=== PATIENT | female | born 1965 | race Caucasian/White ===

== ENCOUNTER 2017-10-08 15:30 | Inpatient (IN) | payer OTHER ==
[2017-10-08] MEDS ORDERED: SODIUM CHLORIDE 1,000 ML IV STA (15:37)
[2017-10-08] MEDS ORDERED: DUONEB NEB STA (15:38)
[2017-10-08] MEDS ORDERED: DUONEB NEB ONE (15:39)
[2017-10-08] MEDS ORDERED: RACEPINEPHRINE 2.25% NEB STA (15:42)
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
[2017-10-08 15:56] LABS: ABG BASE EXCESS 2 (-2.0-2.0); ABG HCO3 25.7 (22.0-26.0); ABG TCO2 27 (22.0-28.0)
[2017-10-08 16:02] LABS: BASOPHILS # (AUTO) 0.1 K/uL (0-0.2); BASOPHILS % (AUTO) 0.4 % (0.0-3.0); EOSINOPHILS % (AUTO) 0.1 % (0.0-7.0); HEMATOCRIT 37.6 % (37.0-47.0); HEMOGLOBIN 12.9 g/dl (12.0-16.0); IMMATURE GRANULOCYTE % (AUTO) 0.3 % (0.0-5.0); LYMPHOCYTES # (AUTO) 1.2 K/uL (0.60-3.4); LYMPHOCYTES % (AUTO) 7.7 (10.0-50.0); MEAN CORPUSCULAR HEMOGLOBIN 28.6 pg (27.0-31.0); MEAN CORPUSCULAR HGB CONC 34.3 (31.8-35.4); MEAN CORPUSCULAR VOLUME 83.4 fl (81.0-99.0); MONOCYTES # (AUTO) 0.7 K/uL (0.4-2.0); MONOCYTES % (AUTO) 4.7 (0-10); NEUTROPHILS # (AUTO) 13.4 K/ul (2.0-6.9); NEUTROPHILS % (AUTO) 86.8; PLATELET COUNT 284 10^3/uL (140-440); RED BLOOD COUNT 4.51 10^6/ul (4.20-5.40); WHITE BLOOD COUNT 15.46 K/ul (4.6-10.2)
--- NOTE | 2017-10-08 16:13 | DI ---
EXAM: Single frontal view of the chest HISTORY: Chest pain. COMPARISON: None FINDINGS: Cardiomediastinal silhouette is normal. There is no pneumothorax or pleural effusion. The re is no consolidation, nodule or mass. The osseous structures are unremarkable. IMPRESSION: No acute cardiopulmonary process.
[2017-10-08] MEDS ORDERED: ROBITUSSIN AC SYRUP PO STA (16:31)
[2017-10-08 17:02] LABS: ALBUMIN 3.5 g/dL (3.4-5.0); ALBUMIN/GLOBULIN RATIO 0.92; ANION GAP 13.9; BILIRUBIN,TOTAL 1.68 mg/dL (0.00-1.20); BUN/CREATININE RATIO 13.23; CALCIUM 9.7 mg/dL (8.2-10.2); CREATININE 0.68 mg/dL (0.60-1.30); POTASSIUM 3.9 mmol/L (3.5-5.10); TOTAL PROTEIN 7.3 g/dL (6.4-8.2); TROPONIN I 0.089 ng/ml (0.0000-0.4000)
[2017-10-08] MEDS ORDERED: SOLU-MEDROL 125 MG IVP STA (17:04)
[2017-10-08 17:05] LABS: CREATINE KINASE MB 5.6 ng/ml (0.0-3.6)
[2017-10-08] MEDS ORDERED: TYLENOL PO PRN (17:06)
[2017-10-08] MEDS: DUONEB NEB SCH ×2 (17:22→23:23)
[2017-10-08] MEDS ORDERED: ROBITUSSIN AC SYRUP PO PRN (19:15)
[2017-10-08] MEDS: MORPHINE 2 MG/ML SYRINGE IVP PRN (19:42)
[2017-10-08] MEDS: NICODERM 21 MG TD SCH (19:42)
[2017-10-08] MEDS: SODIUM CHLORIDE 1,000 ML IV SCH (19:42)
[2017-10-08 19:46] VITALS: BMI 20.3
[2017-10-08] MEDS: SOLU-MEDROL 125 MG IVP SCH (20:01)
--- NOTE | 2017-10-08 20:31 | CT ---
EXAM: CT of the soft tissue neck without contrast History: Dysphagia. Technique: Multiplanar CT images through the soft tissue neck were obtained without the administrati on of IV contrast Findings: Mild emphysema seen within the upper lungs. Patchy left lung infiltrates. The paranasal sinuses and mastoid air cells are clear in general. No acute osseous abnormalities. The intracranial contents demonstrate no grossly acute findings. Epiglottis is not thickened. No prevertebral soft tissue swelling. No peritonsillar inflammation. The parotid glands and submandibular glands are not inflamed. No parotid masses. Evaluation for lym ph nodes is limited due to lack of contrast administration but no bulky adenopathy is seen. No discr ete thyroid nodule identified by CT. Evaluation for abscess is limited due to lack of contrast admin istration but no obvious fluid collections identified. The airway remains patent. There is some harvey rowing of the airway at the level of the vocal cords where there is some debris. Impression: 1. Narrowing of the airway at the level of the vocal cords where there is some debris. Consider pos sible aspiration. Soft tissue mass is considered less likely. 2. Multifocal left lung pneumonia. 3. Mild emphysema within the upper lungs.
[2017-10-08 23:30] LABS: TROPONIN I 0.066 ng/ml (0.0000-0.4000)
[2017-10-09 05:04] LABS: BASOPHILS % (AUTO) 0.1 % (0.0-3.0); HEMATOCRIT 35.1 % (37.0-47.0); HEMOGLOBIN 11.4 g/dl (12.0-16.0); IMMATURE GRANULOCYTE % (AUTO) 0.4 % (0.0-5.0); LYMPHOCYTES # (AUTO) 0.8 K/uL (0.60-3.4); LYMPHOCYTES % (AUTO) 9.5 (10.0-50.0); MEAN CORPUSCULAR HEMOGLOBIN 27.9 pg (27.0-31.0); MEAN CORPUSCULAR HGB CONC 32.5 (31.8-35.4); MONOCYTES # (AUTO) 0.1 K/uL (0.4-2.0); MONOCYTES % (AUTO) 0.7 (0-10); NEUTROPHILS # (AUTO) 7.4 K/ul (2.0-6.9); NEUTROPHILS % (AUTO) 89.3; PLATELET COUNT 250 10^3/uL (140-440); RED BLOOD COUNT 4.08 10^6/ul (4.20-5.40); WHITE BLOOD COUNT 8.24 K/ul (4.6-10.2)
[2017-10-09] MEDS: DUONEB NEB SCH ×4 (05:15→22:20)
[2017-10-09] MEDS: MORPHINE 2 MG/ML SYRINGE IVP PRN ×3 (06:03→22:23)
[2017-10-09 07:21] LABS: ALBUMIN 3.2 g/dL (3.4-5.0); ALBUMIN/GLOBULIN RATIO 0.86; BILIRUBIN,TOTAL 0.84 mg/dL (0.00-1.20); BUN/CREATININE RATIO 15.49; CALCIUM 9.7 mg/dL (8.2-10.2); CREATININE 0.71 mg/dL (0.60-1.30); TOTAL PROTEIN 6.9 g/dL (6.4-8.2)
[2017-10-09 08:12] LABS: TROPONIN I 0.043 ng/ml (0.0000-0.4000)
[2017-10-09] MEDS: ROCEPHIN 1 GM in SODIUM CHLORIDE 50 ML IV SCH (08:53)
[2017-10-09] MEDS: NICODERM 21 MG TD SCH (08:54)
[2017-10-09] MEDS: SOLU-MEDROL 125 MG IVP SCH ×3 (08:54→20:03)
[2017-10-09] MEDS: SODIUM CHLORIDE 1,000 ML IV SCH (11:32)
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
--- NOTE | 2017-10-09 13:42 | CT ---
Exam: CT of the chest without intravenous contrast. Comparison: X-ray performed on 10/08/2017. Reason for exam: Shortness of air. FINDINGS: Image interpretation is limited by the lack of intravenous contrast administration. No pneumothorax or pleural effusion. There is mild basilar atelectasis. Patchy ground-glass opaciti es are seen within the left upper and lower lobes. There is a noncalcified 7.5-mm nodule in the left lower lobe on axial image number 32. The heart is not enlarged. The aorta is normal in course and caliber. Atherosclerotic disease is seen within the aorta. No suspicious appearing osteoblastic or osteolytic lesions. Partially calcified density adjacent to the spleen may represent a small calcified splenic artery ane urysm. Evaluation is limited without intravenous contrast. Impression: 1. Patchy airspace opacities in the left upper and lower lobes likely inflammatory or early pneumonia . Recommend follow-up evaluation to document resolution. 2. 7.5 mm nodule in the left lower lobe. Recommend short term interval follow-up and 3 months to doc ument stability.
[2017-10-10] MEDS: SODIUM CHLORIDE 1,000 ML IV SCH ×2 (01:51→15:49)
[2017-10-10 04:59] LABS: BASOPHILS % (AUTO) 0.1 % (0.0-3.0); HEMATOCRIT 31.2 % (37.0-47.0); HEMOGLOBIN 10.2 g/dl (12.0-16.0); IMMATURE GRANULOCYTE % (AUTO) 0.5 % (0.0-5.0); LYMPHOCYTES # (AUTO) 0.8 K/uL (0.60-3.4); LYMPHOCYTES % (AUTO) 7.2 (10.0-50.0); MEAN CORPUSCULAR HEMOGLOBIN 28.3 pg (27.0-31.0); MEAN CORPUSCULAR HGB CONC 32.7 (31.8-35.4); MEAN CORPUSCULAR VOLUME 86.7 fl (81.0-99.0); MONOCYTES # (AUTO) 0.4 K/uL (0.4-2.0); MONOCYTES % (AUTO) 3.8 (0-10); NEUTROPHILS # (AUTO) 9.9 K/ul (2.0-6.9); NEUTROPHILS % (AUTO) 88.4; PLATELET COUNT 249 10^3/uL (140-440); WHITE BLOOD COUNT 11.19 K/ul (4.6-10.2)
[2017-10-10] MEDS: DUONEB NEB SCH ×4 (05:16→23:10)
[2017-10-10 05:28] LABS: ALBUMIN 2.8 g/dL (3.4-5.0); ALBUMIN/GLOBULIN RATIO 0.85; ANION GAP 7.6; BILIRUBIN,TOTAL 0.26 mg/dL (0.00-1.20); BUN/CREATININE RATIO 20.68; CALCIUM 9.2 mg/dL (8.2-10.2); CREATININE 0.58 mg/dL (0.60-1.30); POTASSIUM 4.6 mmol/L (3.5-5.10); TOTAL PROTEIN 6.1 g/dL (6.4-8.2)
[2017-10-10] MEDS ORDERED: MILK OF MAGNESIA PO STA (08:32)
[2017-10-10] MEDS: MORPHINE 2 MG/ML SYRINGE IVP PRN ×2 (09:07→17:23)
[2017-10-10] MEDS: SOLU-MEDROL 125 MG IVP SCH ×3 (09:08→20:35)
[2017-10-10] MEDS: ROCEPHIN 1 GM in SODIUM CHLORIDE 50 ML IV SCH (09:17)
[2017-10-10] MEDS: MUCINEX PO SCH ×2 (09:18→20:35)
[2017-10-10] MEDS: NICODERM 21 MG TD SCH (09:18)
[2017-10-10] MEDS ORDERED: MOTRIN PO PRN (19:16)
[2017-10-11] MEDS: MORPHINE 2 MG/ML SYRINGE IVP PRN ×2 (04:55→21:43)
[2017-10-11] MEDS: SODIUM CHLORIDE 1,000 ML IV SCH (04:56)
[2017-10-11] MEDS: DUONEB NEB SCH ×4 (05:03→23:04)
[2017-10-11 05:18] LABS: HEMOGLOBIN 10.1 g/dl (12.0-16.0); IMMATURE GRANULOCYTE % (AUTO) 1.4 % (0.0-5.0); LYMPHOCYTES # (AUTO) 0.7 K/uL (0.60-3.4); LYMPHOCYTES % (AUTO) 8.2 (10.0-50.0); MEAN CORPUSCULAR HEMOGLOBIN 28.4 pg (27.0-31.0); MEAN CORPUSCULAR HGB CONC 32.6 (31.8-35.4); MEAN CORPUSCULAR VOLUME 87.1 fl (81.0-99.0); MONOCYTES # (AUTO) 0.2 K/uL (0.4-2.0); MONOCYTES % (AUTO) 2.5 (0-10); NEUTROPHILS # (AUTO) 7.8 K/ul (2.0-6.9); NEUTROPHILS % (AUTO) 87.9; PLATELET COUNT 290 10^3/uL (140-440); RED BLOOD COUNT 3.56 10^6/ul (4.20-5.40); WHITE BLOOD COUNT 8.87 K/ul (4.6-10.2)
[2017-10-11 05:42] LABS: ALBUMIN 3.1 g/dL (3.4-5.0); ANION GAP 11.6; BILIRUBIN,TOTAL 0.3 mg/dL (0.00-1.20); BUN/CREATININE RATIO 23.8; CALCIUM 9.2 mg/dL (8.2-10.2); CREATININE 0.63 mg/dL (0.60-1.30); POTASSIUM 4.6 mmol/L (3.5-5.10); TOTAL PROTEIN 6.2 g/dL (6.4-8.2)
[2017-10-11] MEDS: SOLU-MEDROL 125 MG IVP SCH ×3 (09:56→21:37)
[2017-10-11] MEDS: ROCEPHIN 1 GM in SODIUM CHLORIDE 50 ML IV SCH (09:56)
[2017-10-11] MEDS: MUCINEX PO SCH ×2 (09:57→21:38)
[2017-10-11] MEDS: NICODERM 21 MG TD SCH (09:57)
[2017-10-11] MEDS ORDERED: GI COCKTAIL PO STA (11:52)
[2017-10-11] MEDS ORDERED: DILAUDID 2 MG/ML SYRINGE IVP STA (11:54)
[2017-10-11] MEDS ORDERED: DILAUDID 2 MG/ML SYRINGE ONE (11:58)
--- NOTE | 2017-10-11 12:28 | CT ---
Exam: CT thorax without IV contrast. Clinical indication: Chest pain. TECHNIQUE: Axial unenhanced CT images of the thorax were obtained followed by coronal and sagittal r eformats. Findings: Within the posterior aspect of the left upper lobe and within the left lower lobe there are some scat tered ill-defined pulmonary parenchymal opacities, most consistent with infectious/inflammatory etiol ogy. Within the posterior aspect of the left lower lobe there is a densely partially calcified pulmonary g ranuloma, consistent with old healed granulomatous disease. The remainder the pulmonary parenchyma d emonstrates underlying centrilobular emphysema. The remainder of the pulmonary parenchyma is clear. There is no pleural abnormality. There are no enlarged axillary, hilar or mediastinal lymph nodes, by size criteria. There are coronary artery calcifications. The visualized portions of the upper abdomen are unremarkable. The visualized bony structures are unremarkable. Impression: 1. Patchy ill-defined opacities within the left upper and lower lobes, most consistent with infectio us/inflammatory etiology. 2. Underlying pulmonary emphysema. 3. Coronary artery calcifications. 4. Incidental evidence of old healed granulomatous disease.
[2017-10-11] MEDS: ATIVAN PO SCH ×2 (13:16→21:38)
[2017-10-11 13:17] LABS: TROPONIN I 0.04 ng/ml (0.0000-0.4000)
[2017-10-11 13:55] LABS: BILIRUBIN,URINE Negative (NEGATIVE); KETONES,URINE Negative (NEGATIVE); LEUKOCYTE ESTERASE ,URINE 2+ (NEGATIVE); NITRITE,URINE Negative (NEGATIVE); PH,URINE 6.5 (5-9); PROTEIN,URINE Negative (NEGATIVE); URINE, BLOOD Trace-intact (NEGATIVE)
[2017-10-11 14:01] LABS: ADD URINE MICROSCOPIC YES
[2017-10-11 14:05] LABS: BACTERIA,URINE TRACE (NOT PRESENT)
[2017-10-11 14:08] LABS: COCAIN SCREEN,URINE NEGATIVE (NEGATIVE)
[2017-10-11] MEDS ORDERED: LOVENOX SUBCUT SCH (20:30)
[2017-10-11] MEDS: FAMVIR PO SCH (22:22)
[2017-10-12 05:03] LABS: BASOPHILS % (AUTO) 0.2 % (0.0-3.0); HEMATOCRIT 30.8 % (37.0-47.0); HEMOGLOBIN 9.8 g/dl (12.0-16.0); IMMATURE GRANULOCYTE % (AUTO) 2.3 % (0.0-5.0); LYMPHOCYTES # (AUTO) 0.9 K/uL (0.60-3.4); LYMPHOCYTES % (AUTO) 16.8 (10.0-50.0); MEAN CORPUSCULAR HEMOGLOBIN 27.8 pg (27.0-31.0); MEAN CORPUSCULAR HGB CONC 31.8 (31.8-35.4); MEAN CORPUSCULAR VOLUME 87.3 fl (81.0-99.0); MONOCYTES # (AUTO) 0.1 K/uL (0.4-2.0); MONOCYTES % (AUTO) 2.7 (0-10); PLATELET COUNT 279 10^3/uL (140-440); RED BLOOD COUNT 3.53 10^6/ul (4.20-5.40); WHITE BLOOD COUNT 5.18 K/ul (4.6-10.2)
[2017-10-12] MEDS: DUONEB NEB SCH ×4 (05:03→23:40)
[2017-10-12 05:25] LABS: ALBUMIN 2.7 g/dL (3.4-5.0); ALBUMIN/GLOBULIN RATIO 1.04; ANION GAP 10.4; BILIRUBIN,TOTAL 0.32 mg/dL (0.00-1.20); BUN/CREATININE RATIO 25.42; CALCIUM 8.7 mg/dL (8.2-10.2); CREATININE 0.59 mg/dL (0.60-1.30); POTASSIUM 4.4 mmol/L (3.5-5.10); TOTAL PROTEIN 5.3 g/dL (6.4-8.2)
[2017-10-12] MEDS: CARAFATE PO SCH ×4 (06:03→20:58)
[2017-10-12] MEDS: PROTONIX PO SCH (06:03)
[2017-10-12] MEDS: FAMVIR PO SCH ×3 (06:03→20:59)
[2017-10-12] MEDS: ATIVAN PO SCH ×2 (10:00→20:59)
[2017-10-12] MEDS: MUCINEX PO SCH ×2 (10:01→20:59)
[2017-10-12] MEDS ORDERED: FAMVIR PO STA (10:02)
[2017-10-12] MEDS: ZITHROMAX PO SCH (10:02)
[2017-10-12] MEDS: NICODERM 21 MG TD SCH (10:04)
[2017-10-12] MEDS: ROCEPHIN 1 GM in SODIUM CHLORIDE 50 ML IV SCH (10:06)
[2017-10-12] MEDS: SOLU-MEDROL 125 MG IVP SCH ×3 (10:07→20:58)
[2017-10-12] MEDS: MORPHINE 2 MG/ML SYRINGE IVP PRN ×2 (11:24→20:58)
[2017-10-12] MEDS: SODIUM CHLORIDE 1,000 ML IV SCH (15:22)
[2017-10-12] MEDS: LOVENOX SUBCUT SCH (20:58)
[2017-10-13] MEDS: DUONEB NEB SCH ×4 (05:10→23:05)
[2017-10-13] MEDS: FAMVIR PO SCH ×3 (06:20→20:52)
[2017-10-13] MEDS: CARAFATE PO SCH ×4 (06:20→20:52)
[2017-10-13] MEDS: PROTONIX PO SCH (06:20)
[2017-10-13] MEDS: ZITHROMAX PO SCH (09:16)
[2017-10-13] MEDS: MUCINEX PO SCH ×2 (09:16→20:52)
[2017-10-13] MEDS: ATIVAN PO SCH ×2 (09:16→21:06)
[2017-10-13] MEDS: NICODERM 21 MG TD SCH (09:17)
[2017-10-13] MEDS: ROCEPHIN 1 GM in SODIUM CHLORIDE 50 ML IV SCH (09:20)
[2017-10-13] MEDS: SOLU-MEDROL 125 MG IVP SCH ×3 (09:33→20:52)
[2017-10-13] MEDS: MORPHINE 2 MG/ML SYRINGE IVP PRN ×2 (09:35→20:34)
[2017-10-13] MEDS ORDERED: GI COCKTAIL PO STA (17:17)
[2017-10-13] MEDS: LEXAPRO PO SCH (17:50)
[2017-10-13] MEDS ORDERED: CITRATE OF MAGNESIA PO STA (19:13)
[2017-10-13] MEDS: LOVENOX SUBCUT SCH (20:52)
[2017-10-14] MEDS: DUONEB NEB SCH ×4 (05:08→23:03)
[2017-10-14] MEDS: FAMVIR PO SCH ×3 (05:57→20:43)
[2017-10-14] MEDS: PROTONIX PO SCH (05:57)
[2017-10-14] MEDS: CARAFATE PO SCH ×4 (05:57→20:42)
--- NOTE | 2017-10-14 07:17 | PN ---
DATE OF SERVICE: 10/12/17 SUBJECTIVE: The patient is still coughing and congested, not able to get any phlegm. The patient has been complaining of burning and itching sensation in the upper right area which was examined in the presence of nurse Sanna. There was some blistery lesions and has a history of herpes simplex in the past. The patient being started on the Famciclovir for the herpes. REVIEW OF SYSTEMS: CONSTITUTIONAL: No fever, no chills. HEENT: Normal. ENDOCRINE: No weight gain, no weight loss. CVS: No angina symptoms. No CHF symptoms. No palpitations. No atypical chest pain for CAD. No shortness of breath. No PND, no orthopnea. RESPIRATORY: No cough, no hemoptysis. GI: No nausea, no vomiting. No abdominal pain. : No hematuria. No polyuria. MUSCULOSKELETAL:. No joint swelling. PSYCHIATRIC: Not anxious. No depression. No suicidal thoughts. No homicidal thoughts. SKIN: Intact. No rash. PHYSICAL EXAMINATION: V/S: Blood pressure 156/74, respiratory rate 15, heart rate 89, temperature 98.1 with saturation 97%. HEENT: Normocephalic, atraumatic. Mucosa dry. Pallor positive. No icterus. NECK: Supple. No JVD, no carotid bruit. No lymphadenopathy. LUNGS: Decreased and basilar crackles right more than the left. Clear to auscultation. No rales or rhonchi. HEART: S1, S2 normal. No S3. No murmur, gallop or regurgitation. ABDOMEN: Soft, nontender. Bowel sounds active. No rigidity. No rebound or guarding. No CVA tenderness. EXTREMITIES: No clubbing, cyanosis or pedal edema. MUSCULOSKELETAL: No joint swelling. NEUROLOGIC: Awake, alert, oriented times three. No focal deficit. LYMPHATIC: No lymph nodes palpable. SKIN: Intact. LABS: WBC 5.18, hgb 9.8, hct 30.8, plt count 279, sodium 137, potassium 4.4, chloride 101, bicarb 30, BUN 15, creatinine 0.59, glucose 190.AST 68, ALT 191. ASSESSMENT: 1. Inhalation, lung injury 2. Community acquired pneumonia multifocal 3. Herpes Simplex 4. History of anxiety disorder 5. Osteoarthritis 6. Lupus 7. Depression PLAN: 1. Continue Rocephin 1 gram daily 2. Lovenox for the DVT prophylaxis 3. Famciclovir 4. Phenergan with codeine 5. DUO NEBS 6. Lorazepam 7. Will add Azithromycin PO daily for three days. TIME SPENT: More than 30 minutes MTDD
[2017-10-14] MEDS: ROCEPHIN 1 GM in SODIUM CHLORIDE 50 ML IV SCH (09:35)
[2017-10-14] MEDS: ZESTRIL PO SCH (09:36)
[2017-10-14] MEDS: ATIVAN PO SCH ×2 (09:36→20:43)
[2017-10-14] MEDS: LEXAPRO PO SCH (09:36)
[2017-10-14] MEDS: ZITHROMAX PO SCH (09:36)
[2017-10-14] MEDS: MUCINEX PO SCH ×2 (09:37→20:43)
[2017-10-14] MEDS: NICODERM 21 MG TD SCH (09:44)
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
--- NOTE | 2017-10-14 10:41 | PN ---
DATE OF SERVICE: 10/09/17 SUBJECTIVE: The patient was admitted with respiratory distress and difficulty swallowing. CT of the neck did show some swelling in the soft tissue and multinodular pneumonia. REVIEW OF SYSTEMS: CONSTITUTIONAL: No fever, no chills. HEENT: Normal. Difficulty breathing and swallowing. ENDOCRINE: No weight gain, no weight loss. CVS: No angina symptoms. No CHF symptoms. No palpitations. No atypical chest pain for CAD. No shortness of breath. No PND, no orthopnea. RESPIRATORY: Cough and congestion. no hemoptysis. GI: No nausea, no vomiting. No abdominal pain. : No hematuria. No polyuria. MUSCULOSKELETAL:. No joint swelling. PSYCHIATRIC: Not anxious. No depression. No suicidal thoughts. No homicidal thoughts. SKIN: Intact. No rash. PHYSICAL EXAMINATION: V/S: Blood pressure 129/69, respiratory rate 20, heart rate 93, temperature 97.8 with saturation 97. HEENT: Normocephalic, atraumatic. Mucosa dry. Throat area redness is present. Swelling is present. NECK: Supple. No JVD, no carotid bruit. No lymphadenopathy. LUNGS: Decreased and basilar crackles with mild expiratory wheeze. No rales or rhonchi. HEART: S1, S2 normal. No S3. No murmur, gallop or regurgitation. ABDOMEN: Soft, nontender. Bowel sounds active. No rigidity. No rebound or guarding. No CVA tenderness. EXTREMITIES: No clubbing, cyanosis or pedal edema. MUSCULOSKELETAL: No joint swelling. NEUROLOGIC: Awake, alert, oriented times three. No focal deficit. LYMPHATIC: No lymph nodes palpable. SKIN: Intact. LABS: WBC 8.24, hgb 11.4, hct 35.1, plt count 250, sodium 138, potassium 4.0, chloride 103, Bicarb 26, BUN 11, creatinine 0.71, glucose 153, AST 64, Alkaline phosphatase 107. ASSESSMENT: 1. Chemical pneumonitis 2. Multinodular pneumonia per CT neck 3. Difficulty swallowing 4. Shortness of breath PLAN: 1. Continue the Rocephin 2. DUO NEBS 3. IV fluids 4. Breathing treatments 5. Solu-Medrol 6. Daily I&O's TIME SPENT: More than 35 minutes MTDD
[2017-10-14] MEDS: SOLU-MEDROL 125 MG IVP SCH ×3 (10:42→20:42)
[2017-10-14] MEDS: MORPHINE 2 MG/ML SYRINGE IVP PRN (10:49)
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
[2017-10-14 15:47] LABS: BASOPHILS % (AUTO) 0.2 % (0.0-3.0); HEMATOCRIT 38.1 % (37.0-47.0); HEMOGLOBIN 12.5 g/dl (12.0-16.0); IMMATURE GRANULOCYTE % (AUTO) 3.7 % (0.0-5.0); LYMPHOCYTES # (AUTO) 1.1 K/uL (0.60-3.4); LYMPHOCYTES % (AUTO) 9.2 (10.0-50.0); MEAN CORPUSCULAR HEMOGLOBIN 28.4 pg (27.0-31.0); MEAN CORPUSCULAR HGB CONC 32.8 (31.8-35.4); MEAN CORPUSCULAR VOLUME 86.6 fl (81.0-99.0); MONOCYTES # (AUTO) 0.5 K/uL (0.4-2.0); MONOCYTES % (AUTO) 4.2 (0-10); NEUTROPHILS % (AUTO) 82.7; PLATELET COUNT 431 10^3/uL (140-440); WHITE BLOOD COUNT 12.05 K/ul (4.6-10.2)
[2017-10-14 15:57] LABS: ALBUMIN 3.3 g/dL (3.4-5.0); ALBUMIN/GLOBULIN RATIO 0.97; ANION GAP 12.4; BILIRUBIN,TOTAL 0.36 mg/dL (0.00-1.20); BUN/CREATININE RATIO 25.64; CALCIUM 8.9 mg/dL (8.2-10.2); CREATININE 0.78 mg/dL (0.60-1.30); POTASSIUM 4.4 mmol/L (3.5-5.10); TOTAL PROTEIN 6.7 g/dL (6.4-8.2)
[2017-10-14] MEDS: LOVENOX SUBCUT SCH (20:42)
[2017-10-15] MEDS: DUONEB NEB SCH ×2 (05:10→11:27)
[2017-10-15] MEDS: FAMVIR PO SCH ×2 (06:09→14:18)
[2017-10-15] MEDS: CARAFATE PO SCH ×2 (06:09→14:23)
[2017-10-15] MEDS: PROTONIX PO SCH (06:10)
[2017-10-15] MEDS: NICODERM 21 MG TD SCH (08:44)
[2017-10-15] MEDS: LEXAPRO PO SCH (09:43)
[2017-10-15] MEDS: MUCINEX PO SCH (09:43)
[2017-10-15] MEDS: ZESTRIL PO SCH (09:44)
[2017-10-15] MEDS: MORPHINE 2 MG/ML SYRINGE IVP PRN (09:44)
[2017-10-15] MEDS: ATIVAN PO SCH (09:44)
[2017-10-15] MEDS: ROCEPHIN 1 GM in SODIUM CHLORIDE 50 ML IV SCH (09:47)
[2017-10-15] MEDS: SOLU-MEDROL 125 MG IVP SCH (09:50)
[2017-10-15 10:53] VITALS: BP 172/84; TEMP 98
--- NOTE | 2017-10-15 11:01 | US ---
EXAM: ULTRASOUND ABDOMEN LIMITED HISTORY: Elevated liver enzyme FINDINGS: Ultrasound abdomen, limited. Lange-scale ultrasound and color Doppler was performed. Live r size was normal at 10.3 cm. The liver parenchyma demonstrated normal sonographic appearance without evidence of intrahepatic biliary dilatation or focal lesion. Patent and hepatopedal main portal vein . The gallbladder has been removed. Common bile duct diameter normal at 0.57 cm. Visualized pancreas was within normal limits. No ascites. Survey of the right kidney had no evidence of hydronephrosis. IMPRESSION: 1. Grossly unremarkable liver. 2. Post cholecystectomy state with no common bile duct dilatation.
[2017-10-15] MEDS ORDERED: FAMVIR PO STA (13:58)
[2017-10-15 16:50] LABS: COCAIN SCREEN,URINE NEGATIVE (NEGATIVE)
--- NOTE | 2017-11-05 11:34 | PN ---
DATE OF SERVICE: 10/13/17 SUBJECTIVE: The patient was admitted with inhalation injury and community acquired pneumonia. She is still coughing with congestion and shortness of breath with minimal exertion. The patient started having some jitteriness and shakiness. She complains that she has been depressed and crying. Otherwise, no fever, chills, PND or orthopnea. REVIEW OF SYSTEMS: CONSTITUTIONAL: No fever, no chills. HEENT: Normal. ENDOCRINE: No weight gain, no weight loss. CVS: No angina symptoms. No CHF symptoms. No palpitations. No atypical chest pain for CAD. No shortness of breath. No PND, no orthopnea. RESPIRATORY: Cough, congestion and shortness of breath with minimal exertion, no hemoptysis. GI: No nausea, no vomiting. No abdominal pain. : No hematuria. No polyuria. MUSCULOSKELETAL:. No joint swelling. PSYCHIATRIC: Not anxious. Depression with crying. No suicidal thoughts. No homicidal thoughts. SKIN: Intact. No rash. PHYSICAL EXAMINATION: V/S: Blood pressure 156/72, respiratory rate 20, heart rate 90, temperature 97.6 , saturation 98. HEENT: Normocephalic, atraumatic. Mucosa dry. Pallor positive. No icterus. NECK: Supple. No JVD, no carotid bruit. No lymphadenopathy. LUNGS: Decreased basilar crackles. Expiratory wheeze. No rales or rhonchi. HEART: S1, S2 normal. No S3. No murmur, gallop or regurgitation. ABDOMEN: Soft, nontender. Bowel sounds active. No rigidity. No rebound or guarding. No CVA tenderness. EXTREMITIES: No clubbing, cyanosis or pedal edema. MUSCULOSKELETAL: No joint swelling. NEUROLOGIC: Awake, alert, oriented times three. No focal deficit. LYMPHATIC: No lymph nodes palpable. SKIN: Intact. LABS: From 10/12/2017, white count 5.18, hemoglobin 9.8, hematocrit 30.8, platelet count 214.6, sodium 137, potassium 4.4, chloride 101, bicarb 30. BUN 15 , creatinine 0.59, glucose 119. Elevated AST 68, ALT 191. ASSESSMENT: 1. INHALATION INJURY 2. COMMUNITY ACQUIRED PNEUMONIA 3. DEPRESSION 4. ANXIETY 5. ELEVATED LIVER ENZYMES 6. HERPES SIMPLEX 7. NICOTINE USE PLAN: 1. Continue the Rocephin, Zithromycin, Famvir, Solu-Medrol and DuoNebs. 2. Will start the patient on Lexapro 20 mg p.o. daily. TIME SPENT: More than 35 minutes MTDD
--- NOTE | 2017-11-05 11:44 | PN ---
DATE OF SERVICE: 10/14/17 SUBJECTIVE: The patient is still coughing with congestion. She has some shortness of breath. Otherwise, no fever, chills, PND or orthopnea. REVIEW OF SYSTEMS: CONSTITUTIONAL: No fever, no chills. HEENT: Normal. ENDOCRINE: No weight gain, no weight loss. CVS: No angina symptoms. No CHF symptoms. No palpitations. No atypical chest pain for CAD. No shortness of breath. No PND, no orthopnea. RESPIRATORY: Cough, congestion and shortness of breath. No hemoptysis. GI: No nausea, no vomiting. No abdominal pain. : No hematuria. No polyuria. MUSCULOSKELETAL:. No joint swelling. PSYCHIATRIC: Not anxious. No depression. No suicidal thoughts. No homicidal thoughts. SKIN: Intact. No rash. PHYSICAL EXAMINATION: V/S: Blood pressure 182/98, heart rate 101. respiratory rate 20, temperature 97.4 and saturation 96. HEENT: Normocephalic, atraumatic. Mucosa dry. NECK: Supple. No JVD, no carotid bruit. No lymphadenopathy. LUNGS: Decreased basilar crackles. Expiratory wheeze. No rales or rhonchi. HEART: S1, S2 normal. No S3. No murmur, gallop or regurgitation. ABDOMEN: Soft, nontender. Bowel sounds active. No rigidity. No rebound or guarding. No CVA tenderness. EXTREMITIES: No clubbing, cyanosis or pedal edema. MUSCULOSKELETAL: No joint swelling. NEUROLOGIC: Awake, alert, oriented times three. No focal deficit. PSYCHOLOGICAL: Mood is a little bit better with no crying episodes. LYMPHATIC: No lymph nodes palpable. SKIN: Intact. LABS: Sodium 135, potassium 4.4, chloride 97, bicarb 30, BUN 20, creatinine 0.78, glucose 124, AST 105, ALT 273. White count 12.05, hemoglobin 12.5, hematocrit 38.1, platelet count 431. ASSESSMENT: 1. INHALATION INJURY 2. COMMUNITY ACQUIRED PNEUMONIA 3. ELEVATED LIVER ENZYMES 4. DEPRESSION 5. ANXIETY 6. HERPES SIMPLEX INFECTION PLAN: 1. Continue Rocephin, Zithromycin. 2. CT scan of the chest without contrast. 3. IV fluids. 4. Breathing treatments 5. Solu-Medrol. 6. Nicotine patch. TIME SPENT: More than 35 minutes MTDD
--- NOTE | 2017-11-05 12:15 | DS ---
DATE OF SERVICE: 10/15/17 FINAL DIAGNOSIS: 1. INHALATION LUNG INJURY 2. COMMUNITY ACQUIRED PNEUMONIA, BILATERAL 3. NICOTINE USE 4. DEPRESSION 5. ANXIETY 6. OSTEOARTHRITIS 7. LUPUS 8. HERPES SIMPLEX 9. FIBROMYALGIA 10. GERD 11. HYPERTENSION PLAN: 1. Discharge the patient home. 2. Follow up in the [facility]. 3. Medications: Protonix 40 mg p.o. daily Zestril 40 mg p.o. daily Lexapro 20 mg daily Keflex 500 mg p.o. twice daily for five days Prednisone 10 mg twice a day for five days Famvir 500 mg, take one tablet p.o. at bedtime 4. Diet: Cardiac and healthy. 5. Activity: As much as tolerated. 6. Advised clearly to quit smoking. Offered help, offered the nicotine patch, but the patient refused to do this at this time. DISEASE SPECIFIC EDUCATION: About the pneumonia, exposure to the fumes, pneumonia vaccination were discussed. HOSPITAL COURSE: Amanda Rios who is 52 year old female came to the emergency room after the patient was burning some garbage. She started having shortness of breath, swelling in the throat so she came to the emergency room and was seen by Dr. Traylor in the emergency room. ABG showed the pH 7.450, PCO2 37.0, PO2 66. White count was 15,000. Chemistry was sodium 132 and CKMB was slightly elevated. At that time, the patient was admitted to the hospital and I came and saw her. We did CT of the soft tissue of the neck, which did show soft tissue swelling in the throat and which did show multifocal pneumonia for which a CT of the chest was done which was consistent with the multifocal pneumonia. She was continued with the steroids, antibiotics and the breathing treatments. CT of the chest did show 7.5 mm nodule in the left lower lobe. With the given breathing treatments, the patient gradually was recuperating. The hospital course was lengthy and she was taking time as the patient gets easily anxious and short of breath. After two days, she complained that she had been having some painful rash and blisters around her vagina. Examined in the presence of the nurse, Sanna. There were blistery lesions significant for the herpes simplex. The patient was started on the Famvir. The patient then started crying and had depression complaining of depression, but not suicidal. Lexapro was started. [place] was given for the anxiety. The patient was up and about walking. She still had shortness of breath and coughing. Repeat CT scan done on 10/11/2017 showed patchy ill defined opacities in the left upper and lower lobes. Most consistent with the infection or inflammatory etiology. Coronary calcifications were also seen. Meanwhile ALT's were elevating, but we thought this may be a reaction from the Famvir, but we did go ahead and do the ultrasound which did not show any acute findings of the liver or abdomen. Repeat chest scan done on the 10/14/17 showed improved aeration in the left lung with subtile ground-glass opacities and follow up is suggested. As the patient is up and awake and did not have any shortness of breath. She still had a cough, but no shortness of breath. Clinically stable at that time, so she is being discharged to home. TIME SPENT: MORE THAN 55 MINUTES MTDD
== END 2017-10-15 15:00 | disposition home or self-care (01) | DRG 917 ==
LOC: ED 15:30 → MEDSURG B 17:15
PROVIDERS: ADMIT Emergency Medicine; ATTEND Emergency Medicine
DX: T59.811A Toxic effect of smoke, accidental (unintentional), initial encounter (principal); J18.9 Pneumonia, unspecified organism; J70.5 Respiratory conditions due to smoke inhalation; R06.02 Shortness of breath; R07.9 Chest pain, unspecified; R13.10 Dysphagia, unspecified; A60.00 Herpesviral infection of urogenital system, unspecified; R74.8 Abnormal levels of other serum enzymes; I10 Essential (primary) hypertension; R91.1 Solitary pulmonary nodule; F41.8 Other specified anxiety disorders; M19.90 Unspecified osteoarthritis, unspecified site; M32.9 Systemic lupus erythematosus, unspecified; M79.7 Fibromyalgia; K21.9 Gastro-esophageal reflux disease without esophagitis; K59.00 Constipation, unspecified; F17.200 Nicotine dependence, unspecified, uncomplicated; Y93.H9 Activity, other involving exterior property and land maintenance, building and construction; X08.8XXA Exposure to other specified smoke, fire and flames, initial encounter
CPT/HCPCS: 36415; 80053; 80306; 81001; 82150; 82550; 82553; 82803; 83605; 83690; 83880; 84145; 84484; 85025; 87040; 87070; 87086; 93005; 93010; 94640; 96361; 96374; 99284

== ENCOUNTER 2018-01-26 19:20 | Inpatient (IN) | payer OTHER ==
[2018-01-26] MEDS ORDERED: NORFLEX IM STA (19:45)
[2018-01-26] MEDS ORDERED: TORADOL IM STA (19:45)
[2018-01-26] MEDS ORDERED: ZOFRAN ODT PO STA (19:45)
--- NOTE | 2018-01-26 19:49 | ED.PDOC ---
General ED Provider: Dr. FIDEL RAYMUNDO Chief Complaint: Headache Stated Complaint: Patient is a 52 year old female who comes to the ER brought by her daughter with headaches for the past two days. Has not had any relief with Tylenol. Also complains of head itching like it is on fire or has bugs. Daughter states she has been complaining of this for a while and has been treated with nix for possible parasite infection. Daughter states that she drinks alot all the time but does not thinks she uses drugs. Time Seen by Physician: 19:36 Mode of Arrival: Walk-In Information Source: Patient Nursing and Triage Documentation Reviewed and Agree: Yes Reviewed sepsis parameters & appropriate labs ordered?: No System Inflammatory Response Syndrome: Not Applicable Sepsis Protocol: For patient's 13 years and over: Temp is 96.8 and below OR 101 and greater Pulse >90 BPM Resp >20/minute Acutely Altered Mental Status Are patient's symptoms suggestive of a new infection, such as: -Pneumonia -Skin, Soft Tissue -Endocarditis -UTI -Bone, Joint Infection -Implantable Device -Acute Abdominal Infection -Wound Infection -Meningitis -Blood Stream Catheter Infection -Unknown System Inflammatory Response Syndrome: Not Applicable Review of Systems - Review Of Systems Constitutional: Reports: No symptoms Eyes: Reports: No symptoms Ears, Nose, Mouth, Throat: Reports: No symptoms Respiratory: Reports: No symptoms Cardiac: Reports: No symptoms GI: Reports: No symptoms : Reports: No symptoms Musculoskeletal: Reports: No symptoms Skin: Reports: Rash Neurological: Reports: Anxiety Endocrine: Reports: No symptoms Hematologic/Lymphatic: Reports: No symptoms All Other Systems: Reviewed and Negative Past Medical History - Past Medical History Previously Healthy: Yes Endocrine: Reports: None Cardiovascular: Reports: None Respiratory: Reports: None Hematological: Reports: None Gastrointestinal: Reports: None Genitourinary: Reports: None Neuro/Psych: Reports: Migraine Musculoskeletal: Reports: Unknown Cancer: Reports: None Last Menstrual Period: N/A Other Pertinent Past Medical History: jenise lee - Surgical History General Surgical History: Reports: Cholecystectomy - Family History Family History: Reports: None - Social History Smoking Status: Current every day smoker Hx Substance Use: No Alcohol Screening: None - Immunizations Tetanus Shot up to Date: No Physical Exam - Physical Exam Appearance: Ill-appearing, Thin Ill-appearing: Moderate Eyes: LISA, EOMI, Conjunctiva clear ENT: Nose normal, Oropharynx normal Neck: Supple Respiratory: Airway patent, Breath sounds clear, Breath sounds equal, Respirations nonlabored Cardiovascular: RRR, Pulses normal, No rub, No murmur, Tachycardia GI/: Soft, Nontender, No masses, Bowel sounds normal, No Organomegaly Musculoskeletal: Normal strength, ROM intact, No edema, No calf tenderness Skin: Warm, Dry Neurological: Sensation intact, Motor intact, Reflexes intact, Cranial nerves intact, Alert, Oriented Psychiatric: Anxious, Depressed Physician Notification - Case Discussed Physician Notified: DR. Bates Time of Notification: 22:43 (Ok to Admit for Alcohol withdrawal.) Critical Care Note - Critical Care Note Total Time (mins): 30 Course - Course Hematology/Chemistry: 01/26/18 21:21 01/26/18 21:21 Orders, Labs, Meds: Lab Review 01/26/18 01/26/18 01/26/18 21:21 21:21 21:21 WBC 6.96 RBC 4.73 Hgb 12.3 Hct 39.3 MCV 83.1 MCH 26.0 L MCHC 31.3 L RDW Coeff of Patrick 15.6 H Plt Count 272 Immature Gran % (Auto) 0.3 Neut % (Auto) 48.5 Lymph % (Auto) 40.4 Charlton % (Auto) 6.6 Eos % (Auto) 3.2 Baso % (Auto) 1.0 Immature Gran # (Auto) 0.0 Neut # (Auto) 3.4 Lymph # (Auto) 2.8 Charlton # (Auto) 0.5 Eos # (Auto) 0.2 Baso # (Auto) 0.1 Sodium 141 Potassium 3.0 L Chloride 100 Carbon Dioxide 26 Anion Gap 18.0 BUN 9 Creatinine 0.70 Estimated GFR (MDRD) 88.00 BUN/Creatinine Ratio 12.85 Glucose 113 H Calcium 9.8 Total Bilirubin 0.6 AST 28 ALT 24 Alkaline Phosphatase 67 Total Protein 7.1 Albumin 4.2 Globulin 2.9 Albumin/Globulin Ratio 1.45 TSH 0.209 L Free T4 Plasma/Serum Alcohol < 10.0 01/26/18 21:21 WBC RBC Hgb Hct MCV MCH MCHC RDW Coeff of Patrick Plt Count Immature Gran % (Auto) Neut % (Auto) Lymph % (Auto) Charlton % (Auto) Eos % (Auto) Baso % (Auto) Immature Gran # (Auto) Neut # (Auto) Lymph # (Auto) Charlton # (Auto) Eos # (Auto) Baso # (Auto) Sodium Potassium Chloride Carbon Dioxide Anion Gap BUN Creatinine Estimated GFR (MDRD) BUN/Creatinine Ratio Glucose Calcium Total Bilirubin AST ALT Alkaline Phosphatase Total Protein Albumin Globulin Albumin/Globulin Ratio TSH Free T4 0.92 Plasma/Serum Alcohol Orders Category Date Time Status OXYGEN Routine CARDIO 01/26/18 22:50 Ordered ACTIVITY .Early Mobilization for VTE Prevention CARE 01/26/18 22:50 Active INTAKE & OUTPUT Q8HR CARE 01/26/18 22:50 Active VITAL SIGNS Q4HR CARE 01/26/18 22:50 Active REGULAR DIET DIETARY 01/26/18 Breakfast Ordered ED IV/MEDIPORT/POWERPORT .ONCE EMERGENCY 01/26/18 21:55 Active BASIC METABOLIC PANEL DAILY@0600 LAB 01/27/18 06:00 Ordered BASIC METABOLIC PANEL DAILY@0600 LAB 01/28/18 06:00 Ordered BLOOD ALCOHOL Stat LAB 01/26/18 21:21 Completed CBC W/ AUTO DIFF DAILY@0600 LAB 01/27/18 06:00 Ordered CBC W/ AUTO DIFF DAILY@0600 LAB 01/28/18 06:00 Ordered CBC W/ AUTO DIFF Stat LAB 01/26/18 21:21 Completed COMPREHENSIVE METABOLIC PANEL Stat LAB 01/26/18 21:21 Completed DRUG SCREEN, URINE, RAPID Stat LAB 01/26/18 21:44 Ordered FREE T4 (FREE THYROXINE) Stat LAB 01/26/18 21:21 Completed HIV 1/O/2 ANTIBODIES Stat LAB 01/26/18 21:21 Received TSH [THYROID STIMULATING HORMONE] Stat LAB 01/26/18 21:21 Completed 0.9 % Sodium Chloride [Saline Flush] MEDS 01/26/18 21:55 Ordered 1 syr IVF PRN PRN Acetaminophen [Tylenol] MEDS 01/26/18 22:50 Ordered 650 mg PO Q4H PRN Chlordiazepoxide HCl [Librium] MEDS 01/26/18 23:00 Ordered 25 mg PO TID Enoxaparin Sodium [Lovenox] MEDS 01/27/18 09:00 Ordered 40 mg SUBCUT DAILY Hydroxyzine HCl [Atarax] MEDS 01/26/18 21:40 Discontinued 50 mg .ROUTE .STK-MED ONE Hydroxyzine HCl [Atarax] MEDS 01/26/18 21:36 Discontinued 50 mg PO ONCE STA Ketorolac Tromethamine [Toradol] MEDS 01/26/18 19:45 Discontinued 60 mg IM ONCE STA Lorazepam [Ativan] MEDS 01/26/18 21:45 Discontinued 1 mg PO ONCE STA Lorazepam [Ativan] MEDS 01/26/18 22:50 Ordered 1 mg PO Q2H PRN Ondansetron HCl/Pf [Zofran 4 mg/2 ml] MEDS 01/26/18 22:50 Ordered 4 mg IVP Q6H PRN Ondansetron [Zofran Odt] MEDS 01/26/18 19:45 Discontinued 4 mg PO ONCE STA Orphenadrine Citrate [Norflex] MEDS 01/26/18 19:45 Discontinued 60 mg IM ONCE STA Potassium Chloride in 0.9%NaCl [Sodium Chloride 0.9%- MEDS 01/26/18 23:00 Ordered KCl 20 Meq] 1,000 ml Vitamin B-1 Inj [Thiamine] 100 mg IV 125 mls/hr Sodium Chloride 0.9% [Sodium Chloride] 1,000 ml MEDS 01/26/18 21:57 Discontinued IV BOLUS Vitamin B-1 Inj [Thiamine] MEDS 01/27/18 09:00 Ordered 100 mg IVP DAILY RESUSCITATION STATUS Routine OTHERS 01/26/18 22:[address] HEAD W/O CONTRAST Stat RADS 01/26/18 19:45 Completed Medications Generic Name Dose Route Start Last Admin Trade Name Freq PRN Reason Stop Dose Admin Acetaminophen 650 mg 01/26/18 22:50 Tylenol PO Q4H PRN headache Chlordiazepoxide HCl 25 mg 01/26/18 23:00 01/27/18 00:35 Librium PO Not Given TID [facility] Enoxaparin Sodium 40 mg 01/27/18 09:00 Lovenox SUBCUT DAILY [facility] Thiamine HCl 100 mg/ Potassium 1,001 mls @ 125 mls/hr 01/26/18 23:00 00:28 Chloride/Sodium Chloride IV 125 mls/hr .Q8H1M [facility] Administration Lorazepam 1 mg 01/26/18 22:50 Ativan PO Q2H PRN Alcohol Withdrawal Ondansetron HCl 4 mg 01/26/18 22:50 Zofran 4 Mg/2 Ml IVP Q6H PRN Nausea / Vomiting Sodium Chloride 1 syr 01/26/18 21:55 Saline Flush IVF PRN PRN To flush IV Thiamine HCl 100 mg 01/27/18 09:00 Thiamine IVP DAILY JERAMY Discontinued Medications Generic Name Dose Route Start Last Admin Trade Name Darron PRN Reason Stop Dose Admin Hydroxyzine HCl 50 mg 01/26/18 21:36 01/26/18 21:43 Atarax PO 01/26/18 21:37 Not Given ONCE STA Sodium Chloride 1,000 mls @ 1,000 mls/hr 01/26/18 21:57 01/26/18 22:29 Sodium Chloride IV 01/26/18 22:56 1,000 mls/hr BOLUS STA Administration Ketorolac Tromethamine 60 mg 01/26/18 19:45 01/26/18 19:55 Toradol IM 01/26/18 19:46 60 mg ONCE STA Administration Lorazepam 1 mg 01/26/18 21:45 01/26/18 21:58 Ativan PO 01/26/18 21:46 1 mg ONCE STA Administration Ondansetron HCl 4 mg 01/26/18 19:45 01/26/18 19:55 Zofran Odt PO 01/26/18 19:46 4 mg ONCE STA Administration Orphenadrine Citrate 60 mg 01/26/18 19:45 01/26/18 19:55 Norflex IM 01/26/18 19:46 60 mg ONCE STA Administration Vital Signs: Temp Pulse Resp BP Pulse Ox 01/26/18 19:20 98.6 F 105 H 20 152/82 H 97 Departure - Departure Time of Disposition: 21:40 Disposition: ADMITTED INPATIENT Discharge Problem: Anxiety, Seborrheic dermatitis of scalp Condition: Fair Pt referred to PMD for follow-up: Yes IPMP verified?: No Allergies/Adverse Reactions: Allergies No Known Allergies Allergy (Verified 01/26/18 19:23) Home Medications: Ambulatory Orders Hydroxyzine HCl [Atarax] 25 mg PO TID PRN #25 tablet 01/26/18 Disposition Discussed With: Patient, Family
--- NOTE | 2018-01-26 20:26 | CT ---
EXAM: CT head without contrast 01/26/2018. Sagittal and coronal reformatted images obtained HISTORY: Headache COMPARISON: 07/14/2015 FINDINGS: There is no evidence of intracranial hemorrhage. The midline is maintained. There is no h ydrocephalus. No cerebellar tonsillar ectopia. Evaluation of the calvarium shows no fracture. Th e mastoid air cells are normally pneumatized. IMPRESSION: No acute intracranial abnormality.
[2018-01-26] MEDS ORDERED: VISTARIL INJ IM STA (21:12)
[2018-01-26] MEDS ORDERED: ATARAX PO STA (21:36)
[2018-01-26] MEDS ORDERED: ATARAX ONE (21:40)
[2018-01-26] MEDS ORDERED: ATIVAN PO STA (21:45)
[2018-01-26] MEDS ORDERED: SODIUM CHLORIDE 1,000 ML IV STA (21:57)
[2018-01-26] MEDS ORDERED: ZOFRAN 4 MG/2 ML IVP PRN (22:50)
[2018-01-26] MEDS ORDERED: TYLENOL PO PRN (22:50)
[2018-01-27] MEDS ORDERED: THIAMINE ONE ×3 (00:23→17:05)
[2018-01-27 00:27] VITALS: BMI 20.8
[2018-01-27] MEDS: THIAMINE IV SCH ×4 (00:28→17:17)
[2018-01-27] MEDS: SODIUM CHLORIDE 0.9% IV SCH ×2 (00:28→10:23)
[2018-01-27] MEDS: KCL 20 MEQ IV SCH ×4 (00:28→17:17)
[2018-01-27] MEDS: LIBRIUM PO SCH ×4 (00:35→20:37)
[2018-01-27] MEDS ORDERED: INFUVITE ADULT IV ONE ×2 (08:50→17:05)
[2018-01-27] MEDS: SODIUM CHLORIDE IV SCH ×2 (08:59→17:17)
[2018-01-27] MEDS: INFUVITE ADULT IV SCH ×2 (08:59→17:17)
[2018-01-27] MEDS ORDERED: THIAMINE IVP SCH (09:00)
[2018-01-27] MEDS: LOVENOX SUBCUT SCH (09:00)
[2018-01-27] MEDS: ATIVAN PO PRN ×2 (13:02→15:44)
[2018-01-28] MEDS ORDERED: THIAMINE ONE ×2 (00:54→20:49)
[2018-01-28] MEDS ORDERED: INFUVITE ADULT IV ONE ×2 (00:54→20:49)
[2018-01-28] MEDS: KCL 20 MEQ IV SCH ×3 (01:28→21:03)
[2018-01-28] MEDS: INFUVITE ADULT IV SCH ×3 (01:28→21:03)
[2018-01-28] MEDS: SODIUM CHLORIDE IV SCH ×3 (01:28→21:03)
[2018-01-28] MEDS: THIAMINE IV SCH ×3 (01:28→21:03)
[2018-01-28] MEDS: LOVENOX SUBCUT SCH (09:54)
[2018-01-28] MEDS: LIBRIUM PO SCH ×3 (09:54→21:03)
[2018-01-28] MEDS: LOPRESSOR PO SCH ×2 (09:54→21:03)
[2018-01-28] MEDS: ATIVAN PO PRN ×5 (11:13→23:57)
[2018-01-28] MEDS ORDERED: PROTONIX ONE (11:17)
[2018-01-28] MEDS: PROTONIX PO SCH ×2 (11:17→18:38)
--- NOTE | 2018-01-28 16:09 | DS ---
DATE OF SERVICE: 01/26/17 CHIEF COMPLAINT/HISTORY OF PRESENT ILLNESS: Initially came for the headache and on further questioning it came to the notice of the ER physician, Dr. Zamarripa that the patient had been having problem with alcohol, drinks everyday. Not able to get alcohol for 1-2 days and started having headaches. She is having the rocking motion in the bed and she is not by herself. She is slightly disoriented. Seen and evaluated by him. CT of the head was negative for the stroke. With the given history of alcohol dependency and headache the patient was admitted to the hospital for alcohol withdraw symptoms and the treatment with the IV fluids. REVIEW OF SYSTEMS: CONSTITUTIONAL: No fever, no chills. Weakness, tiredness. HEENT: Normal. Headache. ENDOCRINE: No weight gain; no weight loss. CVS: No chest pain. No PND, no orthopnea. No shortness of breath. No PND, no orthopnea. RESPIRATORY: No cough, no congestion. No hemoptysis. GI: No nausea, no vomiting. No abdominal pain. No melena. : No hematuria. No polyuria. MUSCULOSKELETAL: No joint swelling. PSYCHIATRIC: Anxious. Depression. No suicidal thoughts. No homicidal thoughts. SKIN: Intact, no open lesions. PAST MEDICAL HISTORY: GERD Constipation Osteoarthritis Right hip sciatica Lupus not on any medications Depression Anxiety Nicotine use Alcohol use, did not tell how much she drinks but she did say that she drinks everyday. Per information that I received from the emergency room Fibromyalgia PAST SURGICAL HISTORY: None PERSONAL HISTORY: The patient does smoke. Family history significant for diabetes. MEDICATIONS: None ALLERGIES: No known medications. PHYSICAL EXAMINATION: V/S: Blood pressure 152/82, respiratory rate 20, heart rate 105, temperature 98.6, saturation 97 on the room air. GENERAL. The patient is unkept and doesn't seems like she took shower. HEENT: Atraumatic, normocephalic. No scleral icterus. Mucosa dry. NECK: Supple. No JVD, no bruit. No lymphadenopathy. No thyromegaly. HEART: S1, S2 normal. No murmur. No cyanosis or clubbing. No ascites. LUNGS: Clear to auscultation. No rales or rhonchi. ABDOMEN: Soft, nontender. Bowel sounds are active. No CVA tenderness. No rigidity or guarding. EXTREMITIES: No pedal edema. No cyanosis or clubbing MUSCULOSKELETAL: Normal joints, no swelling. NEUROLOGIC: The patient is lethargic, responds to the verbal stimuli and then goes back to sleep. SKIN: Intact; no open lesions. LYMPHATIC: No lymph nodes palpable. LABS: WBC 6.96, hgb 12.3, hct 39.3, plt count 272, sodium 141, potassium 3.0, chloride 100, bicarb 26, BUN 9, creatinine 0.70 and glucose 113. ASSESSMENT: 1. Alcohol dependency and early withdraw symptoms 2. Depression 3. Anxiety, not on any medication 4. History of Lupus not on any medication 5. Schizophrenia like symptoms PLAN: 1. Admit patient to the SCU 2. IV fluids with MVI 3. Ativan 1mg Q 12 hours PRN 4. Lovenox for the DVT prophylaxis 5. Librium 25mg three times a day PRN 6. Metoprolol 7. Zofran PRN TIME SPENT: MORE THAN 75 minutes MTDD
[2018-01-28] MEDS: NICODERM 21 MG TD SCH (16:51)
[2018-01-29] MEDS: PROTONIX PO SCH (05:39)
[2018-01-29] MEDS: ATIVAN PO PRN (05:39)
[2018-01-29] MEDS ORDERED: ZESTRIL PO SCH (09:00)
[2018-01-29] MEDS ORDERED: LOPRESSOR PO SCH (09:00)
[2018-01-29] MEDS: LIBRIUM PO SCH (09:10)
[2018-01-29] MEDS: NICODERM 21 MG TD SCH (09:12)
[2018-01-29] MEDS: LOVENOX SUBCUT SCH (09:13)
[2018-01-29] MEDS: INFUVITE ADULT IV SCH ×2 (09:38→09:39)
[2018-01-29] MEDS: THIAMINE IV SCH ×2 (09:38→09:39)
[2018-01-29] MEDS: KCL 20 MEQ IV SCH ×2 (09:38→09:39)
[2018-01-29] MEDS: SODIUM CHLORIDE IV SCH ×2 (09:38→09:39)
[2018-01-29 09:58] VITALS: BP 164/86; TEMP 98
--- NOTE | 2018-02-26 10:41 | PN ---
DATE OF SERVICE: 01/27/18 SUBJECTIVE: The patient was admitted with alcohol withdraws. Whole night the patient had a good night sleep. As of now he is still sleeping. She responses to the verbal stimuli and goes back to sleep. She mentioned to the nurse that she has been depressed and did have some thoughts of hurting herself but never tried to do anything for that. REVIEW OF SYSTEMS: CONSTITUTIONAL: No fever, no chills. HEENT: Normal. ENDOCRINE: No weight gain, no weight loss. CVS: No angina symptoms. No CHF symptoms. No palpitations. No atypical chest pain for CAD. No shortness of breath. No PND, no orthopnea. RESPIRATORY: No cough, no hemoptysis. GI: No nausea, no vomiting. No abdominal pain. : No hematuria. No polyuria. MUSCULOSKELETAL: No joint swelling. PSYCHIATRIC: Not anxious. No depression. No suicidal thoughts. No homicidal thoughts. SKIN: Intact. No rash. PHYSICAL EXAMINATION: V/S: Blood pressure 157/80, respiratory rate 18, heart rate 72, temperature 97.8 with saturation 97%. HEENT: Normocephalic, atraumatic. Mucosa dry. Pallor positive. No icterus. NECK: Supple. No JVD, no carotid bruit. No lymphadenopathy. LUNGS: Decreased and clear to auscultation. No rales or rhonchi. HEART: S1, S2 normal. No S3. No murmur, gallop or regurgitation. ABDOMEN: Soft, nontender. Bowel sounds active. No rigidity. No rebound or guarding. No CVA tenderness. EXTREMITIES: No pedal edema. No clubbing or cyanosis MUSCULOSKELETAL: No joint swelling. NEUROLOGIC: Awake, alert, oriented times three. No focal deficit. LYMPHATIC: No lymph nodes palpable. SKIN: Intact. LABS: Sodium 143, potassium 3.5, chloride 109, bicarb 26, BUN 9, creatinine 0.61, WBC 5.54, hgb 10.6, hct 34.1 and plt count 201. ASSESSMENT: 1. Hypokalemia which is resolved 2. Anemia, dilution versus real anemia 3. Depression 4. Anxiety, not on any medication. 5. Because of patient sitting in the bed and having rocking movement, catatonic movements question of schizophrenia of catatonia. 6. Alcohol dependency 7. Alcohol withdraws early PLAN: 1. Mental Health consultation 2. Continue the Ativan and Librium PRN 3. Lovenox for the DVT prophylaxis TIME SPENT: More than 35 minutes MTDD
--- NOTE | 2018-02-26 11:16 | PN ---
DATE OF SERVICE: 01/28/18 SUBJECTIVE: The patient is up and about. Blood pressure been on the higher sides, still having the catatonic movements. Mental Health came and saw the patient and willing to help her once patient gets discharged. REVIEW OF SYSTEMS: CONSTITUTIONAL: No fever, no chills. HEENT: Normal. ENDOCRINE: No weight gain, no weight loss. CVS: No angina symptoms. No CHF symptoms. No palpitations. No atypical chest pain for CAD. No shortness of breath. No PND, no orthopnea. RESPIRATORY: No cough, no hemoptysis. GI: No nausea, no vomiting. No abdominal pain. : No hematuria. No polyuria. MUSCULOSKELETAL: No joint swelling. PSYCHIATRIC: Anxious, having some constant rocking movements when patient sits. No depression. No suicidal thoughts. No homicidal thoughts. SKIN: Intact. No rash. PHYSICAL EXAMINATION: V/S: Blood pressure 154/93, respiratory rate 21, heart rate 81, temperature 97.9 with saturation 97%. HEENT: Normocephalic, atraumatic. Mucosa dry. Pallor positive. No icterus. NECK: Supple. No JVD, no carotid bruit. No lymphadenopathy. LUNGS: Decreased and clear to auscultation. No rales or rhonchi. HEART: S1, S2 normal. No S3. No murmur, gallop or regurgitation. ABDOMEN: Soft, nontender. Bowel sounds active. No rigidity. No rebound or guarding. No CVA tenderness. EXTREMITIES: No pedal edema. No clubbing or cyanosis MUSCULOSKELETAL: No joint swelling. NEUROLOGIC: Awake, alert, oriented times three. No focal deficit. LYMPHATIC: No lymph nodes palpable. SKIN: Intact. LABS: WBC 4.78, hgb 9.9, hct 31.7, plt count 166, sodium 142, potassium 3.8, chloride 130, bicarb 24, BUN 6, creatinine 0.55. ASSESSMENT: 1. Alcohol withdraw syndrome 2. Hypokalemia which is better 3. Anemia rule out GI bleed 4. Depression 5. Anxiety 6. Lupus PLAN: 1. Anemia profile 2. Metoprolol 25mg PO twice a day 3. IV fluids 4. Librium PRN 5. Ativan PRN TIME SPENT: More than 35 minutes MTDD
--- NOTE | 2018-02-26 11:24 | AMA ---
HISTORY: The patient's daughter came and the she said that the patient wants to be going home and patient then started saying that she will go home with the daughter but meanwhile we are working to place the patient for a facility as patient definitely has psychiatric issues and needing help. Daughter says that she will be safe with her and promised that in case something happens she is going to bring her back. Explained about the safety of the suicide and harm to the others. The patient's daughter verbalized understanding and promised that she would be there taking care of her. The patient's daughter took the patient home after signing the AMA papers. JACINTO
--- NOTE | 2018-02-26 11:31 | PN ---
DATE OF SERVICE: 01/29/18 SUBJECTIVE: The patient was admitted with early alcohol withdraw and found to have a suicidal ideation and depression. Mental Health been talking to the patient. The patient is sitting in the bed with rocking motion. The patient's son is in the room and had some questions and all of them answered. REVIEW OF SYSTEMS: CONSTITUTIONAL: No fever, no chills. HEENT: Normal. ENDOCRINE: No weight gain, no weight loss. CVS: No angina symptoms. No CHF symptoms. No palpitations. No atypical chest pain for CAD. No shortness of breath. No PND, no orthopnea. RESPIRATORY: No cough, no hemoptysis. GI: No nausea, no vomiting. No abdominal pain. : No hematuria. No polyuria. MUSCULOSKELETAL: No joint swelling. PSYCHIATRIC: Not anxious. No depression. No suicidal thoughts. No homicidal thoughts. SKIN: Intact. No rash. PHYSICAL EXAMINATION: V/S: Blood pressure 164/86, respiratory rate 18, heart rate 65, temperature 98.0 with saturation 98%. HEENT: Normocephalic, atraumatic. Mucosa dry. Pallor positive. No icterus. NECK: Supple. No JVD, no carotid bruit. No lymphadenopathy. LUNGS: Clear to auscultation. No rales or rhonchi. HEART: S1, S2 normal. No S3. No murmur, gallop or regurgitation. ABDOMEN: Soft, nontender. Bowel sounds active. No rigidity. No rebound or guarding. No CVA tenderness. EXTREMITIES: No pedal edema. No clubbing or cyanosis MUSCULOSKELETAL: No joint swelling. NEUROLOGIC: Awake, alert, oriented times three. No focal deficit. The patient has the rocking motion.Contacts to the eye is zero. Doesn't not communicate much. LYMPHATIC: No lymph nodes palpable. SKIN: Intact. LABS: WBC 5.39, hgb 11.3, hct 35.5, plt count 196, sodium 144, potassium 4.0, chloride 106, bicarb 28, BUN 7, creatinine 0.71, glucose 88. AST 95 and ALT 132. ASSESSMENT: 1. Early alcohol withdraw 2. 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 4. Elevated liver enzymes 5. Anemia 6. Hypokalemia which is better PLAN: 1. Mental Health evaluation 2. Possible admission to facility in review of depression and suicidal ideations but she did not tell how she was going to kill herself or she even tried 3. Out of bed to chair with the help TIME SPENT: More than 35 minutes JACINTO
== END 2018-01-29 14:10 | disposition left against medical advice (07) | DRG 894 ==
LOC: ED 19:20 → SCU 23:42
PROVIDERS: ADMIT Emergency Medicine; ATTEND Emergency Medicine
DX: F10.259 Alcohol dependence with alcohol-induced psychotic disorder, unspecified (principal); F20.2 Catatonic schizophrenia; R45.851 Suicidal ideations; F41.9 Anxiety disorder, unspecified; E87.6 Hypokalemia; F41.8 Other specified anxiety disorders; D64.9 Anemia, unspecified; R74.8 Abnormal levels of other serum enzymes; R51 Headache; L21.8 Other seborrheic dermatitis
CPT/HCPCS: 36415; 80048; 80053; 80306; 80307; 82607; 82728; 82746; 83540; 83550; 84439; 84443; 84466; 84481; 85025; 85045; 86701; 87081; 96360; 96372; 99285